=== PATIENT | female | born 1995 | race Hispanic/Latino ===

== ENCOUNTER 2023-08-05 19:43 | Observation (INO) | payer BC ==
[~2023-08-05] VITALS: Ht 157.5 cm; Wt 79.4 kg
[2023-08-05 20:28] LABS: BASOPHILS # (AUTO) 0.02 K/uL (0.00-0.20); BASOPHILS % (AUTO) 0.1 % (0.0-5.0); HEMATOCRIT 30.9 % (36-48); IMMATURE GRANULOCYTE ABSOLUTE 0.08 K/uL (0-1); LYMPHOCYTES % (AUTO) 6.1 % (21.0-51.0); MEAN CORPUSCULAR HEMOGLOBIN 30.3 pg (27.0-33.0); MEAN CORPUSCULAR HGB CONC 35.3 g/dL (32.0-36.0); MEAN CORPUSCULAR VOLUME 85.8 fL (79-99); MONOCYTES # (AUTO) 0.7 K/uL (0.1-1.0); MONOCYTES % (AUTO) 4.3 % (3.0-13.0); NEUTROPHILS # (AUTO) 14.5 K/uL (1.8-7.7); PLATELET COUNT (AUTO) 378 K/uL (130-400); RED CELL DISTRIBUTION WIDTH 12.7 % (11.0-15.5); WHITE BLOOD COUNT (AUTO) 16.3 K/uL (4.8-10.8)
[2023-08-05] MEDS ORDERED: HYDROMORPHONE 0.5 MG SYG (0.5MG/0.5ML) IVP ONE (20:30)
[2023-08-05] MEDS: HYDROMORPHONE 0.5 MG SYG (0.5MG/0.5ML) IVP ONE (20:57)
[2023-08-05] MEDS: HYDROMORPHONE 1 MG INJ IVP ONE (21:53)
[2023-08-05 22:02] VITALS: O2SAT 98
[2023-08-06] VITALS (11 sets, daily range): BP systolic 92–125; BP diastolic 55–70; PULSE 68–104; RESP 14–20
[2023-08-06] MEDS: AMPICILLIN 2GM+NS 100ML IV ONE (00:11)
[2023-08-06] MEDS: OXYTOCIN-LR 30 UNITS/500ML 500 ML IV ONE ×2 (00:12→05:59)
[2023-08-06] MEDS: MEPERIDINE-PF 50 MG/ML SYG ONE (00:13)
[2023-08-06] MEDS: PROMETHAZINE HCL 25 MG/ML 1ML AMPULE IM ONE (00:14)
[2023-08-06] MEDS: AMPICILLIN 1GM+NS 50ML IV ONE (04:00)
[2023-08-06] MEDS ORDERED: OXYTOCIN-LR 30 UNITS/500ML 500 ML IV SCH (04:30)
[2023-08-06] MEDS ORDERED: LACTATED RINGERS 1000ML 1,000 ML IV PRN (04:30)
[2023-08-06] MEDS ORDERED: LIDOCAINE PF 100MG/5ML (2%) SYRINGE 5ML ONE (07:58)
[2023-08-06] MEDS ORDERED: PROPOFOL 10 MG/ML 20ML VIAL IV ONE (07:59)
[2023-08-06] MEDS ORDERED: ROCURONIUM BROMIDE 10MG/1ML 5ML VL ONE (07:59)
[2023-08-06] MEDS ORDERED: FENTANYL CITRATE PF 50 MCG/1 ML 2ML VIAL ONE (07:59)
[2023-08-06] MEDS ORDERED: KETAMINE 50MG/ML SYRINGE 50 MG/ML DISP.SYRIN ONE (08:04)
[2023-08-06] MEDS ORDERED: MIDAZOLAM HCL 1 MG/ML 2ML VIAL ONE (08:05)
[2023-08-06] MEDS ORDERED: ONDANSETRON 4MG INJ ONE (08:18)
[2023-08-06] MEDS ORDERED: DEXAMETHASONE SOD PHOSPHATE 10MG/ML 1ML VIAL ONE (08:18)
[2023-08-06] MEDS ORDERED: KETOROLAC 30MG VIAL (30MG/ML) ONE (08:39)
[2023-08-06] MEDS ORDERED: NEOSTIGMINE METHYLSULFATE 1MG/ML IV ONE (08:40)
[2023-08-06] MEDS ORDERED: GLYCOPYRROLATE 0.2 MG/ML 5 ML VIAL ONE (08:40)
[2023-08-06] MEDS ORDERED: VITA1CAP85 PO (08:46)
[2023-08-06] MEDS ORDERED: PREN1TAB80 PO (08:46)
[2023-08-06] MEDS ORDERED: MAGN250T10 PO (08:46)
[2023-08-06] MEDS ORDERED: FAMOTIDINE 20MG VIAL IV ONE (09:00)
[2023-08-06] MEDS ORDERED: SCOPOLAMINE HYDROBROMIDE 1 EACH ADH..PATCH TD ONE (09:00)
== END 2023-08-06 18:30 | disposition home or self-care (01) ==
LOC: EDH 19:43 → OBSVTOIN 20:42 → WSH 20:42 → INTOOBSV 20:42
PROVIDERS: ADMIT Obstetrics & Gynecology; ATTEND Obstetrics & Gynecology
DX: O03.4 Incomplete spontaneous abortion without complication (principal); O72.0 Third-stage hemorrhage; R10.2 Pelvic and perineal pain; Z3A.16 16 weeks gestation of pregnancy; Z37.9 Outcome of delivery, unspecified
CPT/HCPCS: 96376; 96375; 99285; 84702; 85025; 86850; 86900; 86901; 36415; 76805; 76810; 59812; 96372; 96365; 96366; 96368; 88305; J1170 ×2; J2550; J2175; G0378 ×6; J7030; A4351; J3490 ×4; J1100; J2001; J2250; J2704; J2405; J1885; J2710; J0290 ×2; A4649; J3010